=== PATIENT | male | born 1975 | race Caucasian/White ===

== ENCOUNTER 2021-05-10 17:38 | Emergency (ER) | payer SELFPAY ==
[~2021-05-10] VITALS: Ht 177.8 cm; Wt 86.4 kg
[2021-05-10 17:42] VITALS: BP 141/79
== END 2021-05-10 20:25 | disposition left against medical advice (07) ==
LOC: EMS 17:41
DX: M79.643 Pain in unspecified hand (principal); Z53.21 Procedure and treatment not carried out due to patient leaving prior to being seen by health care provider